=== PATIENT | female | born 1980 | race African-American/Black ===

== ENCOUNTER 2021-06-08 09:05 | Emergency (ER) | payer OTHER, SELFPAY ==
[2021-06-08 09:17] VITALS: BP 149/90; PULSE 108; RESP 16; TEMP 36.7; O2SAT 100
--- NOTE | 2021-06-08 09:43 | ED.SKABFB ---
HPI - Skin/Abscess/Foreign Bdy General Chief complaint: Skin/Abscess/Foreign Body Stated complaint: Infected right Thumb Time Seen by Provider: 06/08/21 09:38 Source: patient and RN notes reviewed Mode of arrival: ambulatory Limitations: no limitations History of Present Illness HPI narrative: 40-year-old female presents with concern for a bump on her right first digit that she is concerned could be an infection. Reports its been there approximately 3 weeks to a month. Reports it happened after she was poked with a thorn. She denies any redness, pain, discharge, surrounding redness or pain. Denies any deeper strength, sensation, range of motion of the digit. She denies intervention. MD complaint: other (Wart) Related Data Home Medications Medication Instructions Recorded Confirmed No Home Medications 06/08/21 06/08/21 Allergies Allergy/AdvReac Type Severity Reaction Status Date / Time No Known Allergies Allergy Unknown Verified 06/08/21 09:19 Review of Systems Review of Systems: CONSTITUTIONAL: Denies malaise, chills, sweats, or fever. CARDIOVASCULAR: Denies chest pain, palpitations, or edema. RESPIRATORY: Denies cough or dyspnea. SKIN: Denies rash or itching. Reports a bump on the first digit of the right hand. MUSCULOSKELETAL: Denies muscle skeletal pain, decreased strength, sensation, range of motion in the digit, myalgia. NEUROLOGIC: Denies numbness, weakness All systems reviewed & are unremarkable except as noted in HPI and below PMFSH Social History Social History Smoking status: Never smoker Alcohol intake: never Comments At time of signature, agree with nursing past medical, surgical, social and family history. There is no relevant family history pertinent to the presenting complaint Exam Narrative: GENERAL: Well-appearing, well-nourished, and in no acute distress. HEAD: Normocephalic EYES: PERRLA, conjunctivae clear NECK: Supple. CHEST: Speaks in full sentences. No respiratory distress. HEART: Regular rate and rhythm. Normal and equal peripheral pulses. EXTREMITIES: First digit of right hand has normal strength and sensation. 5/5 strength with digit flexion, extension. Range of motion normal. No clubbing, cyanosis, or edema noted. No tenderness. Skin intact. Normal digital cascade with flexion of fingers, median, ulnar and radial nerve intact. Normal sensation of each side of finger. Can perform 'okay' sign, 'cross over finger test of index and middle fingers' and 'thumbs up' sign. No scissoring. Normal thumb opposition. Good capillary refill and radial pulse. Distal capillary refill less than 3 seconds. SKIN: Warn, dry, intact, pink. No rash. 0.5 cm palpable firm nodule noted to the dorsal aspect of the first digit of the right hand between the MIP of the PIP joint, no tenderness, redness, swelling, induration, erythema noted NEURO: Alert and oriented x3. PSYCH: Normal mood and affect Course Course Emergency Course: Patient is aware of diagnosis, understands and agrees to treatment plan. Anticipatory guidance given. Patient agrees to follow-up as directed and is aware of reasons to seek care at the emergency department. Portions of this record may have been created with voice recognition software Vital Signs Vital signs: Vital Signs Temperature 98.1 F 06/08/21 09:17 Pulse Rate 108 H 06/08/21 09:17 Respiratory Rate 16 06/08/21 09:17 Blood Pressure 149/90 H 06/08/21 09:17 Pulse Oximetry 100 06/08/21 09:17 Temperature 98.1 F 06/08/21 09:17 Pulse Rate 108 H 06/08/21 09:17 Respiratory Rate 16 06/08/21 09:17 Blood Pressure 149/90 H 06/08/21 09:17 Pulse Oximetry 100 06/08/21 09:17 Reviewed. MDM - Skin/Abscess/Foreign Bdy MDM Narrative Medical decision making narrative: Exam findings show no acute concerns or changes; patient is non-toxic appearing and is in no distress. Patient is appropriate for outpatient treatment and follow-up. Differential Diagnosis Dif
== END 2021-06-08 09:48 | disposition home or self-care (01) ==
PROVIDERS: Emergency Provider Nurse Practitioner; PCP Emergency Medicine
DX: B07.9 Viral wart, unspecified (principal)
CPT/HCPCS: 99211; G0463

== ENCOUNTER → 2022-07-31 07:00 | Outpatient (CLI) | payer OTHER, SELFPAY ==
--- NOTE | ~2022-07-31 | US_ITS ---
US thyroid INDICATION: Thyroid nodule TECHNIQUE: Real-time sonographic images of the thyroid gland were obtained. COMPARISON: No prior studies for comparison. FINDINGS: The right thyroid lobe measures 3 x 1.5 x 1.2 cm. The left thyroid lobe measures 3.5 x 1.6 x 0.9 cm. There is normal echotexture and echogenicity throughout the thyroid gland. No discrete nod ules identified. Normal vascular flow is present. IMPRESSION: 1. Normal thyroid without discrete nodule or abnormal vascularity. Reviewed, dictated and finalized at location B.
--- NOTE | ~2022-07-31 | MM_ITS ---
EXAMINATION: MM screening nathanael BI w lee HISTORY: Screening mammogram TECHNIQUE: Craniocaudal and mediolateral oblique 3-D tomosynthesis images were obtained and synthetic 2-D images were generated. CAD analysis was submitted and interpreted. COMPARISON: 01/04/2015 BREAST PARENCHYMAL COMPOSITION: There are scattered areas of fibroglandular density. FINDINGS: There are changes of interval reduction mammoplasty. No suspicious mass, calcification, or architectural distortion are identified in either breast to suggest malignancy. There has been no feroz picious interval change. IMPRESSION: 1. No mammographic evidence of malignancy. 2. Recommend routine screening mammography in one year. BI-RADS Category 1: Negative Reviewed, dictated and finalized at location A.
== END ==
PROVIDERS: PCP Emergency Medicine; Visit Provider Advanced Practice Midwife
DX: Z12.31 Encounter for screening mammogram for malignant neoplasm of breast (principal); Z01.419 Encounter for gynecological examination (general) (routine) without abnormal findings; Z11.51 Encounter for screening for human papillomavirus (HPV)
CPT/HCPCS: 76536; 77063; 77067

== ENCOUNTER 2022-10-19 21:00 | Emergency (ER) | payer OTHER, SELFPAY ==
[2022-10-19] VITALS (10 sets, daily range): BP systolic 157–205; BP diastolic 100–121; PULSE 101–138; RESP 13–20; TEMP 36.7; O2SAT 97–100
--- NOTE | ~2022-10-19 | XR_ITS ---
EXAMINATION: XR chest 2V DATE: 10/19/2022 21:29 INDICATION: Hypertension TECHNIQUE: PA and lateral views of the chest were obtained. COMPARISON: None FINDINGS: The lungs are clear with no focal airspace opacities, pulmonary edema, pleural effusion or pneumothor ax. The cardiomediastinal silhouette is normal. Visualized bones and soft tissues are unremarkable. IMPRESSION: 1. No acute cardiopulmonary disease. Reviewed, dictated and finalized at location A. 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
--- NOTE | 2022-10-19 21:03 | ECG_ITS ---
Measurements Intervals [place] Rate: 137 P: 72 [place]: 149 QRS: 66 QRSD: 93 T: 50 QT: 323 QTc: 489 Interpretive Statements SINUS TACHYCARDIA BORDERLINE ST-T WAVE ABNORMALITY- ANTEROLAT/INF LEADS ABNORMAL ECG NO PREVIOUS ECG AVAILABLE FOR COMPARISON Electronically Signed On 10-20-2022 7:54:37 IRRIGATION WORKER by Rubén Franco D.O.
--- NOTE | 2022-10-19 21:05 | PC.NURSE ---
pt c/o elevated bp all day today. states she has been taking it at home and it has been elevated. states has hx of htn but doesn't take any meds. denies any cp, bar or sob.
--- NOTE | 2022-10-19 21:21 | ED.RECABL ---
HPI - Recheck/Abnormal Lab/Rx General Chief Complaint: Recheck/Abnormal Lab/Rx Stated Complaint: HTN Time Seen by Provider: 10/19/22 21:14 History of Present Illness HPI narrative: 42-year-old female here for evaluation of elevated blood pressures at home. Patient states that she has been told that she has had high blood pressure readings in her PCPs office but she notes that her home readings have always been normal, so decision was made to not start antihypertensives. Therefore, she has not checked her blood pressure at home in over 2 years. Over the past several days she picked up her machine again and she noted BPs around the 160s systolic. Patient decided to come in today due to consistently elevated rates at home. She has noted palpitations. she has no syncope, chest pain, shortness of breath, fevers or chills, nausea or vomiting, arm pain, back pain, headaches, confusion, visual changes. Related Data Allergies Allergy/AdvReac Type Severity Reaction Status Date / Time No Known Allergies Allergy Unknown Verified 10/19/22 21:07 Review of Systems Review of Systems: Gen: Denies fevers or chills Eyes: Denies eye pain or visual change ENT: Denies congestion Respiratory: Denies shortness of breath or cough CV: Reports palpitations. Denies chest pain GI: Denies abdominal pain nausea, emesis or diarrhea : denies burning, urgency, frequency or hematuria Musculoskeletal: Denies back pain or muscle pain Neuro: Denies numbness, tingling, weakness or focal weakness Skin: Denies rash Except as documented, all other systems reviewed and negative PMFSH Social History Social History Smoking status: Never smoker Alcohol intake: never Exam Narrative: APPEARANCE: Well appearing, no pain in distress, well-nourished. Head: Normocephalic and atraumatic. EYES: PERRLA/EOMI, conjunctivae clear NOSE: No nasal drainage EARS: External ear normal in appearance THROAT: Oropharynx is clear. Mucous membranes are moist. NECK: Supple. No adenopathy, no masses. RESPIRATORY: Airway patent, respirations nonlabored. Clear to auscultation bilaterally, no rales, rhonchi, wheezing. CARDIOVASCULAR: Tachycardic. Regular rate and rhythm without murmurs, rubs, or gallops. ABDOMINAL: Normoactive bowel sounds. Soft, nontender, nondistended. No rebound tenderness or guarding. MUSCULOSKELETAL: Extremities are warm and well-perfused. Moves all extremities well. No edema. NEURO: Normal speech. No focal neurologic deficits. SKIN: Skin is warm and dry. No rashes. PSYCHIATRIC: Normal affect/mood. Course Vital Signs Vital signs: Vital Signs Temperature 98.1 F 10/19/22 21:02 Pulse Rate 138 H 10/19/22 21:02 Respiratory Rate 20 10/19/22 21:02 Blood Pressure 202/121 H 10/19/22 21:02 Pulse Oximetry 100 10/19/22 21:02 Oxygen Delivery Room Air 10/19/22 21:02 Temperature 98.1 F 10/19/22 21:02 Pulse Rate 99 10/20/22 00:19 Respiratory Rate 16 10/20/22 00:19 Blood Pressure 158/102 H 10/20/22 00:19 Pulse Oximetry 97 10/20/22 00:19 Oxygen Delivery Room Air 10/19/22 21:02 MDM - Recheck/Abnormal Lab/Rx MDM Narrative Medical decision making narrative: 42-year-old female here for evaluation of elevated home blood pressure reads and palpitations. Patient initially hypertensive to 202/121, heart rate at 138, remainder vital signs normal. Patient not complaining of chest pain or shortness of breath, altered mental status. Cranial nerves II through XII intact. Her blood pressure came down to 158/102 without intervention in the ED, her heart rate came down as well without intervention. Patient believes that she has a chronically high resting heart rate. Her EKG and troponin are nonischemic. Her kidney function is normal . her D-dimer is negative. Her chest x-ray is clear. Her urine is clear. Given numerous documented home BP reads in the 160 systolic, shared decision making was used with patient who agrees with plan to
[2022-10-19 21:29] LABS: Basophils Percent Auto 0.3 % (0.2-1.2); Eosinophils Percent Auto 0.4 % (0-4.4); Hemoglobin 12.2 g/dL (12.0-15.0); Immature Granulocyte Absolute 0.03 K/mm3 (0.00-0.031); Immature Granulocyte Percent A 0.4 % (0-0.5); Lymphocytes Absolute Auto 2.77 K/mm3 (0.9-3.2); Lymphocytes Percent Auto 34.9 % (18.3-44.2); Mean Corpuscular Hemoglobin 28.3 pg (26-34); Mean Corpuscular Volume 85.8 fl (80-100); Mean Platelet Volume 10.1 fl (7.4-10.4); Monocytes Absolute Auto 0.6 K/mm3 (0.1-0.6); Monocytes Percent Auto 7.1 % (2.6-8.5); Neutrophils Absolute Auto 4.5 K/mm3 (1.3-6.7); Neutrophils Percent Auto 56.9 % (45.5-73.1); Platelet Count Result 300 k/mm3 (150-375); Red Blood Count 4.31 M/mm3 (4.2-5.4); Red Cell Distribution Width 13.2 % (11.5-14.5); White Blood Count 7.9 K/mm3 (4.5-10.0)
[2022-10-19 21:40] LABS: INR 1.2; Prothrombin Time 14.3 Seconds (11.1-14.7)
[2022-10-19 21:41] LABS: Partial Thromboplastin Time 26.8 SECONDS (22.3-36.8)
[2022-10-19 22:59] LABS: Alanine Aminotransferase 18 U/L (6-35); Albumin Level 4.7 g/dL (3.5-5.1); Alkaline Phosphatase 72 U/L (38-126); Anion Gap 8 mmol/L (8-16); Aspartate Amino Transferase 27 U/L (14-36); Bilirubin,Total 1.1 mg/dL (0.2-1.3); Blood Urea Nitrogen 15 mg/dL (7-17); Calcium 9.4 mg/dL (8.4-10.2); Carbon Dioxide 28 mmol/L (22-30); Chloride 104 mmol/L (98-107); Estimated CRCL calculation 105 ml/min; Estimated Glomerular Filt Rate > 60; Glucose 140 mg/dL (65-110); Lipase 79 U/L (23-300); Sodium 140 mmol/L (137-145)
[2022-10-19 23:10] LABS: Troponin I < 0.012 ng/mL (0.000-0.034)
[2022-10-19 23:14] LABS: D Dimer 0.37 ug/mL (<0.48)
[2022-10-20 00:03] LABS: Appearance Urine Clear (Clear); Bilirubin Urine Negative (Negative); Blood Urine Trace-intact (Negative); Color Urine Yellow (Yellow); Glucose Urine UA Negative (Negative); Ketones Urine Negative (Negative); Leukocyte Esterase Ur Negative LEU/UL (Negative); Nitrate Urine Negative (Negative); Protein Urine Negative (Negative); Specific Grav Ur 1.025 (1.001-1.035); Urobilinogen Urine 0.2 mg/dL (<2.0); pH Urine 7.5 (5.0-9.0)
[2022-10-20 00:04] LABS: Mucus Urine Few /lpf; Squamous Epithelial Cell Urine Rare /hpf (Few); WBC Urine 0-3 /hpf
[2022-10-20 00:05] LABS: Add Urine Microscopic? YES
[2022-10-20 00:19] VITALS: BP 158/102; PULSE 99; RESP 16; O2SAT 97
== END 2022-10-20 00:31 | disposition home or self-care (01) ==
PROVIDERS: Emergency Medicine; Emergency Provider Physician Assistant; PCP Emergency Medicine
DX: I10 Essential (primary) hypertension (principal); R00.0 Tachycardia, unspecified; R94.31 Abnormal electrocardiogram [ECG] [EKG]
CPT/HCPCS: 36415; 71046; 80053; 81001; 81025; 83690; 84484; 85025; 85380; 85610; 85730; 93005; 99284

== ENCOUNTER → 2023-08-03 07:15 | Outpatient (CLI) | payer OTHER, SELFPAY ==
--- NOTE | ~2023-08-03 | MM_ITS ---
EXAMINATION: MM screening nathanael BI w lee HISTORY: Screening mammogram TECHNIQUE: Craniocaudal and mediolateral oblique 3-D tomosynthesis images were obtained and synthetic 2-D images were generated. CAD analysis was submitted and interpreted. COMPARISON: 07/31/2022, 01/04/2015 BREAST PARENCHYMAL COMPOSITION: There are scattered areas of fibroglandular density. FINDINGS: RIGHT BREAST: A mass is present in the posterior third of the outer breast approximately 10 cm from t he nipple. LEFT BREAST: No suspicious mass, calcification, or architectural distortion are identified to suggest malignancy. There has been no suspicious interval change. IMPRESSION: 1. Right breast mass. 2. Additional mammographic views and possible breast ultrasound are recommended. BI-RADS Category 0: Incomplete: Needs additional imaging evaluation. Reviewed, dictated and finalized at location A. IMPRESSION: 1. Right breast mass. 2. Additional mammographic views and possible breast ultrasound are recommended . BI-RADS Category 0: Incomplete: Needs additional imaging evaluation.
== END ==
PROVIDERS: PCP Nurse Practitioner; Visit Provider Nurse Practitioner
DX: Z12.31 Encounter for screening mammogram for malignant neoplasm of breast (principal); R92.8 Other abnormal and inconclusive findings on diagnostic imaging of breast
CPT/HCPCS: 77063; 77067

== ENCOUNTER → 2023-08-26 07:48 | Outpatient (CLI) | payer OTHER, SELFPAY ==
--- NOTE | ~2023-08-26 | MMUS_ITS ---
EXAMINATION: MM diagnostic nathanael RT w lee, US breast RT limited HISTORY: Right breast mass in posterior third of outer breast reported on 08/03/2023 screening mammog esperanza examination TECHNIQUE: Additional 3-D tomosynthesis images of were performed and synthetic 2-D images were genera melvin. CAD analysis was submitted and interpreted. High resolution upper outer and lower-outer quadrant right breast ultrasound was performed. COMPARISON: 08/03/2023 and 07/31/2022 bilateral screening mammogram examinations FINDINGS: MAMMOGRAPHIC FINDINGS: Partially obscured approximately 1.5 x 10 mm mass is suggested posteriorly in the outer mid right kina ast posteriorly. ULTRASOUND: Corresponding to the mammographic finding in the posterior outer mid right breast at 9:00 8 cm from t he nipple is a 4.6 x 12 x 10 mm circumscribed sonolucency with through transmission posterior enhance ment, no internal vascularity, consistent with benign cyst. No suspicious mass is detected elsewhere in the upper outer or lower outer quadrants of the right kina ast. Some mildly prominent ducts are identified in the 10:00 area 3.5 and 5.5 cm from the nipple. IMPRESSION: 1. Benign finding 2. Routine annual mammographic screening is recommended BI-RADS Category 2: Benign finding(s). Reviewed, dictated and finalized at location A. RICT AGENT IMPRESSION: 1. Benign finding 2. Routine annual mammographic screening is recommended BI-RADS Category 2: Benign finding(s).
== END ==
PROVIDERS: PCP Nurse Practitioner; Visit Provider Nurse Practitioner
DX: R92.2 Inconclusive mammogram (principal)
CPT/HCPCS: 76642; 77061; 77065; G0279

== ENCOUNTER 2024-08-05 07:22 | Outpatient (CLI) | payer OTHER, SELFPAY ==
--- NOTE | ~2024-08-05 | MM_ITS ---
EXAMINATION: MM screening nathanael BI w lee HISTORY: Screening mammogram TECHNIQUE: Craniocaudal and mediolateral oblique 3-D tomosynthesis images were obtained and synthetic 2-D images were generated. CAD analysis was submitted and interpreted. COMPARISON: 08/03/2023, 07/31/2022 BREAST PARENCHYMAL COMPOSITION:Not Dense. There are scattered areas of fibroglandular density. FINDINGS: No suspicious mass, calcification, or architectural distortion are identified in either kina ast to suggest malignancy. There has been no suspicious interval change. IMPRESSION: No mammographic evidence of malignancy. Recommend routine screening mammography in one year. BI-RADS Category 1: Negative Reviewed, dictated and finalized at location .
== END 2024-08-05 07:23 | disposition home or self-care (01) ==
LOC: ANHIMG 07:25
PROVIDERS: PCP Emergency Medicine; Visit Provider Nurse Practitioner
DX: Z12.31 Encounter for screening mammogram for malignant neoplasm of breast (principal)
CPT/HCPCS: 77063; 77067

== ENCOUNTER 2025-08-07 07:11 | Outpatient (CLI) | payer OTHER, SELFPAY ==
--- NOTE | ~2025-08-07 | MM_ITS ---
EXAMINATION: MM screening nathanael BI w lee HISTORY: Screening TECHNIQUE: Craniocaudal and mediolateral oblique 3-D tomosynthesis images were obtained and synthetic 2-D images were generated. CAD analysis was submitted and interpreted. COMPARISON: Comparison to multiple prior studies sequentially, with oldest reviewed study dated 07/31/2022. BREAST PARENCHYMAL COMPOSITION: There are scattered areas of fibroglandular density. FINDINGS: There is no evidence of suspicious mass, calcification, or architectural distortion to suggest malignancy in either breast. Scattered benign-appearing calcifications are present. IMPRESSION: 1. No mammographic evidence of malignancy. 2. Recommend routine screening mammography in one year. BI-RADS Category 2: Benign finding(s). Reviewed, dictated and finalized at location B. 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
--- OUTSIDE RECORDS SUMMARY | 2025-08-07 07:16 | XMS_ITS | Clinical Summary ---
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 Gender Identity Not on file Sexual Orientation Not on file Plan of Treatment Health Maintenance Due Date Last Done Comments Hepatitis C Virus (HCV) Screening 1981 Hepatitis B Immunization (1 of 3 - 19+ 3-dose series) 2000 Pap Smear 2002 Human Papillomavirus (HPV) Immunization (1 - 3-dose SCDM series) 2008 Cervical Cancer Screening (CCS) 2011 HPV/Cotest 2011 Influenza Immunization (#1) 06/05/202508/05, 06/20/2014, 07/18/2013 SARS-COV-2 Immunization ( season) 2025 09/09/2021, 11/20/2020, 10/30/2020 Respiratory Syncytial Virus (RSV) Immunization (Adult) (1 - 1-dose 75+ series) 2056 DTaP/Tdap/Td Immunization Discontinued 03/24/2014 TdaP Immunization Completed 03/24/2014 Meningococcal Immunization (ACWY) Aged Out No longer eligible based on patient's age to complete this topic Pneumococcal Immunization Combined Aged Out No longer eligible based on patient's age to complete this topic Rotavirus Immunization Aged Out No lo nger eligible based on patient's age to complete this topic
--- OUTSIDE RECORDS SUMMARY | 2025-08-07 07:16 | XMS_ITS | Clinical Summary ---
Author Organization [facility] Address [address] [place] [address] Care Team Providers Care Prenatal Teacher Name Role Phone Sam Verdugo MD Primary Care Provide r Allergies No known active allergies Medications losartan-hydro CHLOROthiazide (HYZAAR) 50-12.5 mg per tablet 3 Active cholecalcifero l 400 unit capsule 1800 international units daily Active ferrous sulfate 143 mg (45 mg iron) tablet extended release Take by mouth Active Active Problems Problem Noted Date Diagnosed Date Mass of right breast 09/15/2023 Surgical History Surgery Date Site/Laterality Comments SECTION Medical History Medical History Date Comments Hypertension Social History Tobacco Use Types Packs/Day Years Used Date Smoking Tobacco: Never Tobacco Cessation:Counseling Given: Not Answered Personal Safety Answer Date Recorded Getting School Help Needed Not on file 09/15 Comments Unknown Sex and Gender Information Value Date Recorded Sex Assigned at Not on file Legal 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 Gender Identity Not on file Sexual Orientation Not on file Last Filed Vital Signs Vital Sign Reading Time Taken Comments Blood Pressure 160/97 09/15/2023 9:08 AM PORTABLE CANTEEN OPERATOR Pulse 113 09/15/2023 9:08 AM PORTABLE CANTEEN OPERATOR Temperature 36.7 C (98.1 F) 09/15/2023 9:08 AM PORTABLE CANTEEN OPERATOR Respiratory Rate 18 09/15/2023 9:08 AM PORTABLE CANTEEN OPERATOR Oxygen Saturation 100% 09/15/2023 9:0 8 AM PORTABLE CANTEEN OPERATOR Inhaled Oxygen Concentration - - Weight 64.7 kg (142 lb 9.6 oz) 09/15/20 9:08 AM PORTABLE CANTEEN OPERATOR with shoes Height 156 cm (5' 1.42) 09/15/2023 9:0 8 AM PORTABLE CANTEEN OPERATOR with shoes Body Mass Index 26.58 09/15/2023 9:08 AM PORTABLE CANTEEN OPERATOR Plan of Treatment Health Maintenance Due Date Last Done Comments Breast Cancer Screening-Mammogram 1981 Cervical Cancer Screening 1981 Depression Screening 1981 Hepatitis C Screening 1981 Varicella Vaccines (1 of 2 - 13+ 2-dose series) 1994 Hepatitis B Screening 1999 Regular Well Visit/Exam 18-64 1999 HPV Vaccines (1 - 3-dose SCD M series) 2008 DTaP/Tdap/Td Vaccine (2 - Td or Tdap) 03/24/2024 03/24/2014 Covid-19 Vaccine (4 - 2024-2 6 season) 2025 09/09/2021, 11/20/2020, 10/30/2020 Influenza Vaccine (#1) 2025 5, 06/20/2014, 07/18/2013 Pneumococcal vaccine <65 Aged Out No longer eligible based on patient's age to complete this topic Insurance [facility] CHO[facility] PL[facility] Care Teams Prenatal Teacher Relationship Specialty Start Date End Date Sam Verdugo MD [address] [place] [address] PCP - General Emergency Medicine 09/03/23
== END 2025-08-07 07:12 | disposition home or self-care (01) ==
LOC: ANHFOHIMG 07:12
PROVIDERS: PCP Emergency Medicine; Visit Provider Emergency Medicine
DX: Z12.31 Encounter for screening mammogram for malignant neoplasm of breast (principal)
CPT/HCPCS: 77063; 77067